=== PATIENT | male | born 1975 | race Caucasian/White ===

== ENCOUNTER 2024-11-22 09:10 | Day surgery (SDC) | payer OTHER ==
[~2024-11-22] VITALS: Ht 188 cm; Wt 99.8 kg
[~2024-11-22 09:10] MED LIST: FISH OIL1000 M1 PO; K-TAB20 MEQ PO; LEFLUNOMIDE10 MG PO
[2024-11-22] MEDS ORDERED: LACTATED RINGER'S 1,000 ML IV ONE (09:26)
[2024-11-22 11:53] VITALS: BP 119/83
[2024-11-22] MEDS ORDERED: GLYCOPYRROLATE 0.2 MG/ML IV ONE (14:48)
[2024-11-22] MEDS ORDERED: PROPOFOL 200 MG/20 ML VIAL IV ONE (14:48)
[2024-11-22] MEDS ORDERED: LIDOCAINE HCL 2% 2ML SDV IV ONE (14:48)
[2024-11-22] MEDS ORDERED: MIDAZOLAM HCL 2 MG/2 ML VIAL IV ONE (14:48)
== END 2024-11-22 11:55 | disposition home or self-care (01) | DRG 951 ==
LOC: ENDO 09:10
PROVIDERS: ATTEND Surgery
PROC: 0DJD8ZZ Inspection of Lower Intestinal Tract, Via Natural or Artificial Opening Endoscopic (ICD-10-PCS; principal; 2024-11-22)
DX: Z12.11 Encounter for screening for malignant neoplasm of colon (principal); K57.30 Diverticulosis of large intestine without perforation or abscess without bleeding; K64.8 Other hemorrhoids; D86.0 Sarcoidosis of lung
CPT/HCPCS: J1596